=== PATIENT | male | born 1985 | race Asian ===

== ENCOUNTER 2017-05-30 06:19 | Emergency (ER) | payer OTHER ==
[~2017-05-30] VITALS: Ht 185.4 cm; Wt 98.9 kg
== END 2017-05-30 06:53 | disposition home or self-care (01) ==
LOC: ED 06:19
DX: B02.9 Zoster without complications (principal)
CPT/HCPCS: 96374

== ENCOUNTER 2017-06-10 23:57 | Emergency (ER) | payer OTHER ==
[~2017-06-10] VITALS: Ht 185.4 cm; Wt 97.5 kg
== END 2017-06-11 01:38 | disposition home or self-care (01) ==
LOC: ED 23:57
PROC: 0HQ1XZZ Repair Face Skin, External Approach (ICD-10-PCS; principal; 2017-06-10)
PROC: 09QKXZZ Repair Nasal Mucosa and Soft Tissue, External Approach (ICD-10-PCS; 2017-06-10)
DX: S00.93XA Contusion of unspecified part of head, initial encounter (principal); S00.83XA Contusion of other part of head, initial encounter; S01.112A Laceration without foreign body of left eyelid and periocular area, initial encounter; S01.21XA Laceration without foreign body of nose, initial encounter; S01.511A Laceration without foreign body of lip, initial encounter; Y04.2XXA Assault by strike against or bumped into by another person, initial encounter; Y92.830 Public park as the place of occurrence of the external cause
CPT/HCPCS: 80320; 99283; J1885

== ENCOUNTER 2018-12-27 04:47 | Emergency (ER) | payer BC ==
[~2018-12-27] VITALS: Ht 188 cm; Wt 104.3 kg
[2018-12-27 04:57] VITALS: TEMP 97.8
[2018-12-27 05:22] LABS: PLATELET COUNT 224 K/uL (142-355)
[2018-12-27 06:06] LABS: POTASSIUM 3.6 mmol/L (3.6-5.2)
[2018-12-27 07:55] VITALS: BP 115/95
== END 2018-12-27 07:55 | disposition home or self-care (01) ==
LOC: ED 04:47
PROVIDERS: Emergency Medicine
DX: R55 Syncope and collapse (principal)
CPT/HCPCS: 36415; 80053; 80307; 81000; 82550; 82553; 84484; 85027; 87088; 93005; 99283

== ENCOUNTER 2019-01-02 13:04 | Outpatient (CLI) | payer BC | END 2019-01-02 20:10 | disposition home or self-care (01) | LOC: LABW 13:04 | DX: R06.02 Shortness of breath (principal) | CPT/HCPCS: 36415; 82550; 82553; 84484 ==

== ENCOUNTER 2019-01-03 15:30 | Outpatient (CLI) | payer BC ==
[~2019-01-03] VITALS: Ht 188 cm; Wt 105.2 kg
[2019-01-03 15:38] VITALS: BP 105/75; TEMP 98.3
[2019-01-03 16:48] VITALS: BP 107/67; TEMP 98.5
== END 2019-01-03 16:53 | disposition home or self-care (01) ==
LOC: INF 15:30
DX: E86.0 Dehydration (principal)
CPT/HCPCS: 96360

== ENCOUNTER 2019-01-17 08:41 | Outpatient (CLI) | payer BC | END 2019-01-17 19:37 | disposition home or self-care (01) | LOC: RESP 08:41 | DX: R00.1 Bradycardia, unspecified (principal) | CPT/HCPCS: 93306 ==

== ENCOUNTER → 2019-02-19 15:12 | Outpatient (CLI) | payer BC ==
[~2019-02-19 15:12] MED LIST: CARV6.25 PO; COZAAR100 MG PO; SPIRONOLACT25 MG PO
== END | disposition home or self-care (01) ==
LOC: AMB 15:12
DX: R07.89 Other chest pain (principal); R55 Syncope and collapse

== ENCOUNTER 2019-02-20 08:51 | Outpatient (CLI) | payer BC ==
[2019-02-20] MEDS ORDERED: SPIRONOLACT25 MG PO (10:10)
[2019-02-20] MEDS ORDERED: CARV6.25 PO (10:10)
[2019-02-20] MEDS ORDERED: COZAAR100 MG PO (10:10)
== END 2019-02-20 08:52 | disposition short-term general hospital (02) ==
LOC: AMB 08:51
DX: R10.30 Lower abdominal pain, unspecified (principal); R55 Syncope and collapse
CPT/HCPCS: A0425; A0427

== ENCOUNTER 2019-02-20 08:55 | Emergency (ER) | payer BC ==
[~2019-02-20] VITALS: Ht 188 cm; Wt 105.2 kg
[2019-02-20 09:36] LABS: PLATELET COUNT 114 K/uL (142-355)
[2019-02-20 09:55] LABS: POTASSIUM 4.9 mmol/L (3.6-5.2); SODIUM 145 mmol/L (136-145)
[2019-02-20 10:10] LABS: PARTIAL THROMBOPLASTIN TIME 30.2 SECONDS (24.5-33.6)
[2019-02-20] MEDS ORDERED: SPIRONOLACT25 MG PO (10:10)
[2019-02-20] MEDS ORDERED: CARV6.25 PO (10:10)
[2019-02-20] MEDS ORDERED: COZAAR100 MG PO (10:10)
== END 2019-02-20 13:20 | disposition expired ==
LOC: ED 08:56 → EDBD 08:56 → ED 08:56
PROVIDERS: Emergency Medicine
DX: I46.9 Cardiac arrest, cause unspecified (principal)
CPT/HCPCS: 31500; 80053; 80329; 82550; 82553; 83880; 84484; 85027; 85610; 85730; 92950; 94760; 96360; 96365; 96375; 96376; 99291; J0171; J0282; J0461; J3490